=== PATIENT | female | born 1940 | race Caucasian/White ===

== ENCOUNTER 2022-05-15 11:40 | Emergency (ER) | payer MEDICARE, OTHER ==
[2022-05-15] MEDS: Aspirin 81 MG Tab.Chew PO ONE (11:55)
[2022-05-15] MEDS: Aspirin 81 MG Tab.Chew ONE (12:13)
[2022-05-15 12:25] LABS: ANION GAP 12.7 mmol/L (5-15)
== END 2022-05-15 14:50 | disposition home or self-care (01) ==
LOC: KA.ED 11:40
DX: I20.8 Other forms of angina pectoris (principal); Z88.8 Allergy status to other drugs, medicaments and biological substances
CPT/HCPCS: 36415; 71045; 80048; 82947; 84484; 85025; 93005; 93010; 99284; 99285; A9270-GY

== ENCOUNTER 2024-01-30 16:13 | Emergency (ER) | payer MEDICARE, OTHER ==
[2024-01-30] MEDS: Acetaminophen 500 MG Tab PO ONE (16:22)
== END 2024-01-30 19:54 ==
LOC: KA.ED 16:13
DX: S72.011A Unspecified intracapsular fracture of right femur, initial encounter for closed fracture (principal); S00.83XA Contusion of other part of head, initial encounter; Z88.8 Allergy status to other drugs, medicaments and biological substances; Z79.899 Other long term (current) drug therapy; W11.XXXA Fall on and from ladder, initial encounter
CPT/HCPCS: 73502; 99284; A9270; 99283